=== PATIENT | female | born 1990 | race Caucasian/White ===

== ENCOUNTER 2025-06-29 07:35 | Outpatient (CLI) | payer BC, SELFPAY | END 2025-06-29 07:36 | disposition home or self-care (01) | LOC: NFLDREF 07-02 15:19 | PROVIDERS: Visit Provider Physician Assistant | DX: N97.9 Female infertility, unspecified (principal); Z31.9 Encounter for procreative management, unspecified | CPT/HCPCS: 82670; 83001; 83520; 84146; 84439; 84443 ==

== ENCOUNTER 2025-07-02 08:47 | Outpatient (CLI) | payer BC, SELFPAY ==
--- NOTE | 2025-07-02 09:15 | CRLHL7_ITS ---
For Patients: As a result of the Cures Act, medical imaging exams and procedure reports are released immediately into your electronic medical record. You may view this report before your referring provider. If you have questions, please contact your health care provider. Indication: Encounter for procreative management, unspecified Technique: Fluoroscopic hysterosalpingogram performed. Fluoroscopic time 28 seconds. IMPRESSION: No filling defect within the endometrial canal. Normal spillage of contrast through the left fallopian tube into the peritoneal cavity. Normal opacification of the right fallopian tube with a small amount of spillage appreciated on the final image. Normal exam given limitations of patient discomfort. Dictated by David Hancock MD @ 07/02/2025 10:56:17 AM (Electronically Signed)
--- NOTE | 2025-07-02 10:02 | P.GYNPRC_ITS ---
Procedure Note Date of procedure: 07/02/25 Will [facility] bill your pro fee for this procedure?: Yes Pre-op diagnosis: Infertility evaluation Post-op diagnosis: Same Procedure: Hysterosalpingogram Anesthesia: none Complications: None Surgeon: Naida Mo MD Condition: stable Disposition: same day Findings: Normal external genitalia, cervix nulliparous. Normal intrauterine cavity shape, normal bilateral fallopian tubes and spillage from both tubes. Procedure Description: PROCEDURE: After obtaining verbal consent, the patient was placed in the dorsal lithotomy position on the x-ray table. An open-sided bivalve speculum was introduced into the vagina and the cervix visualized. Patient does not tolerate speculum exam very well, pelvic muscle tightening so it was difficult placement. Placed a pillow below hips and this helped. Multiple times we verbally confirmed if patient wanted to proceed with study completion due to evident significant distress. Patient wanted to continue. The cervix and vagina were then prepped with Betadine. The anterior lip of the cervix was grasped with a single-tooth tenaculum for traction. A os finder was needed and then a balloon tipped double- lumen catheter was then gently inserted through the cervical opening into the uterine cavity to the level of the fundus. The balloon was insufflated with 3 mL of air. The tenaculum and speculum were left in place. The patient was repositioned in the supine position, covered, and the radiologist was called to the room. A hysterosalpingogram was then performed, patient did not tolerate well and balloon came out w/o complete injection of contrast. Speculum and instruments removed, I discussed situation with patient and she desired a second attempt. Same procedure was performed and we were able to complete study. A total of 15-18 cc of Optiray 300 water soluble contrast dye was injected through the double-lumen catheter under moderate pressure. There was immediate fill of the uterine cavity to the cornua and immediate fill of both fallopian tubes and free spillage of dye on both sides, it was slower on the right side but small amount of spillage still noted before the balloon was again spontaneously ejected. The catheter was removed. All instruments removed. The patient tolerated the procedure though she did have severe cramping discomfort during the procedure. Immediately after completion patient was feeling much better, reassured that she can take ibuprofen if she is taking sertraline, it is completely safe. Patient had taken 1000mg of Tylenol before procedure. Recommended adding 600mg of ibuprofen every 6 hours if needed. She was discharged to home in stable condition and to follow [facility].
== END 2025-07-02 08:48 | disposition home or self-care (01) ==
LOC: RAD 08:48
PROVIDERS: Visit Provider Obstetrics & Gynecology
DX: N97.9 Female infertility, unspecified (principal); Z31.9 Encounter for procreative management, unspecified
CPT/HCPCS: 58340; 74740; A4649; Q9967

== ENCOUNTER 2025-08-21 07:35 | Outpatient (CLI) | payer BC, SELFPAY | END 2025-08-21 07:36 | disposition home or self-care (01) | LOC: NFLDREF 08-24 11:10 | PROVIDERS: Visit Provider Physician Assistant | DX: E03.9 Hypothyroidism, unspecified (principal) | CPT/HCPCS: 84443 ==